=== PATIENT | male | born 1975 | race African-American/Black ===

== ENCOUNTER 2017-10-03 09:59 | Emergency (ER) | payer SELFPAY ==
[~2017-10-03] VITALS: Ht 185.4 cm; Wt 87.9 kg
[2017-10-03 10:02] VITALS: BP 125/92
[2017-10-03] MEDS ORDERED: MOTRIN800 MG PO (13:10)
== END 2017-10-03 13:40 | disposition home or self-care (01) ==
LOC: EME 09:59
DX: S80.02XA Contusion of left knee, initial encounter (principal); W22.09XA Striking against other stationary object, initial encounter; Y93.89 Activity, other specified; Y92.810 Car as the place of occurrence of the external cause; F17.200 Nicotine dependence, unspecified, uncomplicated
CPT/HCPCS: 73564; 99281; 99284